=== PATIENT | female | born 1990 | race Hispanic/Latino ===

== ENCOUNTER 2019-05-16 22:18 | Emergency (ER) | payer SELFPAY ==
[2019-05-16] MEDS ORDERED: Lidocaine Viscous Sol 2% 15 ml UD Cup ONE (23:25)
[2019-05-16] MEDS ORDERED: Benzocaine 20% Spray 60 ML CAN PO SCH (23:45)
[2019-05-16] MEDS ORDERED: Glycopyrrolate 0.2 MG/ML 5 ML SYRINGE SLOW IVP SCH (23:45)
[2019-05-17] MEDS ORDERED: Lidocaine Viscous Sol 2% 15 ml UD Cup ONE (00:49)
[2019-05-17] MEDS ORDERED: Midazolam HCl 2 mg/2 ml Vial ONE (01:20)
[2019-05-17] MEDS ORDERED: Morphine 4 MG/ML VIAL ONE (01:35)
[2019-05-17] MEDS ORDERED: Ondansetron PF 4 MG/2 ML Vial ONE (01:36)
== END 2019-05-17 02:00 | disposition home or self-care (01) ==
LOC: ERS 22:18
DX: J02.9 Acute pharyngitis, unspecified (principal); J45.901 Unspecified asthma with (acute) exacerbation; Z79.51 Long term (current) use of inhaled steroids
CPT/HCPCS: 31505; 94640; 96374; 96375; J2250; J2270; J2405; J7620

== ENCOUNTER 2020-03-23 13:53 | Outpatient (CLI) | payer MEDICAID ==
--- NOTE | 2020-03-23 14:53 | MMO ---
Bilateral MAMMO Bilat Diag [facility]. CLINICAL HISTORY: Patient is 29 years old and is seen for diagnostic exam and lump or thickening in both breasts. The patient has no family history of breast cancer. The patient has no personal history of cancer. VIEWS: The views performed were: bilateral craniocaudal with tomosynthesis; bilateral mediolateral oblique with tomosynthesis; and bilateral mediolateral with tomosynthesis. FILMS COMPARED: The present examination has been compared to a prior imaging study performed at [facility] on 03/23/2020. This study has been interpreted with the assistance of computer-aided detection. MAMMOGRAM FINDINGS: The breasts are heterogeneously dense, which could obscure a lesion on mammography. There are multiple masses of varying size with circumscribed margins seen in both breasts. There are no suspicious masses, suspicious calcifications, or new areas of architectural distortion. IMPRESSION: THERE IS NO MAMMOGRAPHIC EVIDENCE OF MALIGNANCY. MULTIPLE FIBROADENOMAS A ROUTINE FOLLOW-UP MAMMOGRAM IN 5 YEARS IS RECOMMENDED. THE RESULTS OF THIS EXAM WERE SENT TO THE PATIENT. ACR BI-RADS Category 2 - Benign finding MAMMOGRAPHY NOTE: 1. A negative mammogram report should not delay a biopsy if a dominant of clinically suspicious mass is present. 2. Approximately 10% to 15% of breast cancers are not detected by mammography. 3. Adenosis and dense breasts may obscure an underlying neoplasm. Reported by: JUANIS TAO MD Electonically Signed: [id number]
--- NOTE | 2020-03-23 15:53 | ULT ---
LEFT BREAST ULTRASOUND: History: Palpable finding. FINDINGS: Several circumscribed hypoechoic solid masses are noted in the left breast, the largest corresponds t o the palpable finding in the 3 o'clock position 1 cm from the nipple measures approximately 1.4 cm i n size and is slightly lobulated. At least one other solid mass noted at 2:30 o'clock 1 cm from the n ipple. IMPRESSION: BIRADS category 2 - benign findings. Several solid circumscribed hypoechoic masses, evidence for mult iple fibroadenomas. If the palpable abnormality enlarges or becomes painful over time, a follow up exam might be consider ed, otherwise, follow up bilateral mammogram at age 34 is recommended.
--- NOTE | 2020-03-23 16:00 | ULT ---
RIGHT BREAST ULTRASOUND LIMITED: History: Palpable findings. FINDINGS: Multiple circumscribed hypoechoic solid masses are noted in the right breast. One is at 7 o'clock 1 c m from the nipple which measures 0.6 x 1.4 cm. A second palpable area at 12 o'clock measures 0.5 x 0. 8 cm. There are several other solid circumscribed masses as well. IMPRESSION: BIRADS category 2 - benign findings. Multiple solid fibroadenomas in the right breast. Follow up mammogram in approximately 5 years is recommended. If these palpable abnormalities worsen, enlarge, or become painful before that time, follow up ultras ound examination at that time should be considered.
== END 2020-03-23 13:54 | disposition home or self-care (01) ==
LOC: BICMAMMO 13:53
PROVIDERS: ATTEND Nurse Practitioner Women's Health
DX: N63.10 Unspecified lump in the right breast, unspecified quadrant (principal); N63.20 Unspecified lump in the left breast, unspecified quadrant; D24.2 Benign neoplasm of left breast; D24.1 Benign neoplasm of right breast
CPT/HCPCS: 77066; G0279

== ENCOUNTER 2024-07-19 13:54 | Outpatient (CLI) | payer OTHER | END 2024-07-19 13:55 | disposition home or self-care (01) | LOC: BICMAMMO 13:54 | PROVIDERS: ATTEND Nurse Practitioner Family | DX: R92.8 Other abnormal and inconclusive findings on diagnostic imaging of breast (principal); Z80.3 Family history of malignant neoplasm of breast; N63.12 Unspecified lump in the right breast, upper inner quadrant; N63.20 Unspecified lump in the left breast, unspecified quadrant | CPT/HCPCS: 77066; G0279 ==

== ENCOUNTER → 2024-08-01 | Day surgery (SDC) | payer OTHER | LOC: BICULT 12:56 | PROVIDERS: ATTEND Nurse Practitioner Family | PROC: 0H95XZX Drainage of Chest Skin, External Approach, Diagnostic (ICD-10-PCS; principal; 2024-08-01) | DX: D24.1 Benign neoplasm of right breast (principal) | CPT/HCPCS: 19083; 88305 ==